=== PATIENT | male | born 1965 | race Caucasian/White ===

== ENCOUNTER 2019-02-12 08:46 | Day surgery (SDC) | payer OTHER | END 2019-02-12 11:25 | disposition home or self-care (01) | LOC: AMB-ENDOS 08:46 | DX: D12.8 Benign neoplasm of rectum (principal); Z12.11 Encounter for screening for malignant neoplasm of colon ==

== ENCOUNTER 2019-03-11 09:36 | Day surgery (SDC) | payer OTHER ==
[2019-03-11] MEDS ORDERED: PERCOCET 5-3251 EACH PO (15:08)
[2019-03-11] MEDS ORDERED: BACTRIM DS TAB1 EACH PO (15:09)
== END 2019-03-11 19:50 | disposition home or self-care (01) ==
LOC: CIR.AMB 09:36
DX: K61.0 Anal abscess (principal); L72.3 Sebaceous cyst

== ENCOUNTER 2019-04-02 07:44 | Emergency (ER) | payer OTHER ==
[~2019-04-02] VITALS: Ht 170.2 cm; Wt 74.8 kg
[~2019-04-02 07:44] MED LIST: BACTRIM DS TAB1 EACH PO; PERCOCET 5-3251 EACH PO
== END 2019-04-02 14:22 | disposition home or self-care (01) ==
LOC: ER 07:44
DX: L72.8 Other follicular cysts of the skin and subcutaneous tissue (principal)